=== PATIENT | female | born 1960 | race Caucasian/White ===

== ENCOUNTER → 2020-10-01 | Outpatient (CLI) | payer OTHER | LOC: HEART 5 09:16 | DX: J44.9 Chronic obstructive pulmonary disease, unspecified (principal); R06.02 Shortness of breath | CPT/HCPCS: 94060; 94729 ==

== ENCOUNTER → 2020-12-21 | Outpatient (CLI) | payer OTHER | LOC: CT 11:43 | DX: D37.030 Neoplasm of uncertain behavior of the parotid salivary glands (principal); I82.611 Acute embolism and thrombosis of superficial veins of right upper extremity; R06.02 Shortness of breath; E04.1 Nontoxic single thyroid nodule; E27.9 Disorder of adrenal gland, unspecified; R91.8 Other nonspecific abnormal finding of lung field | CPT/HCPCS: 71260; 76536; Q9967 ==

== ENCOUNTER → 2021-01-14 | Outpatient (CLI) | payer OTHER | LOC: US 08:22 | DX: K11.8 Other diseases of salivary glands (principal); E04.1 Nontoxic single thyroid nodule ==

== ENCOUNTER → 2021-01-19 | Outpatient (CLI) | payer OTHER | LOC: CT 08:30 | DX: R59.1 Generalized enlarged lymph nodes (principal); E04.2 Nontoxic multinodular goiter | CPT/HCPCS: 70491; Q9967 ==

== ENCOUNTER → 2021-03-22 | Outpatient (CLI) | payer OTHER ==
[2021-03-22 09:38] LABS: HEMOGLOBIN 13.3 gm/dl (12.3-15.3); RED BLOOD COUNT 4.07 M/UL (4.00-5.10); WHITE BLOOD COUNT 9.7 K/UL (4.5-11.0)
== END ==
LOC: US 09:16
PROVIDERS: Otolaryngology
DX: R59.0 Localized enlarged lymph nodes (principal); E07.9 Disorder of thyroid, unspecified; K11.8 Other diseases of salivary glands
CPT/HCPCS: 36415; 85027; 85610; 85730

== ENCOUNTER → 2021-04-20 | Outpatient (CLI) | payer OTHER | LOC: CT 12:50 | DX: R59.9 Enlarged lymph nodes, unspecified (principal); R06.02 Shortness of breath; R91.8 Other nonspecific abnormal finding of lung field; R59.0 Localized enlarged lymph nodes; J98.11 Atelectasis | CPT/HCPCS: 71260 ==

== ENCOUNTER → 2021-06-21 | Outpatient (CLI) | payer OTHER | LOC: LBRF 15:29 | DX: N39.0 Urinary tract infection, site not specified (principal) | CPT/HCPCS: 87086 ==

== ENCOUNTER → 2021-10-07 | Outpatient (CLI) | payer OTHER | LOC: CT 15:03 | DX: D37.030 Neoplasm of uncertain behavior of the parotid salivary glands (principal); D34 Benign neoplasm of thyroid gland | CPT/HCPCS: 36415; 70491; 82565; 84520; Q9967 ==

== ENCOUNTER → 2021-10-26 | Outpatient (CLI) | payer OTHER | LOC: CT 12:57 | DX: I82.611 Acute embolism and thrombosis of superficial veins of right upper extremity (principal); R06.02 Shortness of breath; I25.10 Atherosclerotic heart disease of native coronary artery without angina pectoris | CPT/HCPCS: 71260; Q9967 ==

== ENCOUNTER → 2022-01-13 | Outpatient (CLI) | payer OTHER ==
[~2022-01-13] VITALS: Ht 160 cm; Wt 129.7 kg
== END ==
LOC: OPSV 10:00
DX: D64.9 Anemia, unspecified (principal); R06.02 Shortness of breath; I82.611 Acute embolism and thrombosis of superficial veins of right upper extremity
CPT/HCPCS: 36430; 96374; P9016